=== PATIENT | male | born 1990 | race Caucasian/White ===

== ENCOUNTER 2017-12-11 11:15 | Emergency (ER) ==
[2017-12-11 11:29] VITALS: BP 124/85; TEMP 98.4; BMI 30.2
--- NOTE | 2017-12-11 11:53 | DI ---
Examination: Two views of the chest. HISTORY: Cough. COMPARISON: None. FINDINGS: The cardiomediastinal silhouette appears normal in overall size and configuration. The tra ngs are clear without focal pulmonary infiltrate. There is no significant pleural fluid. Osseous st ructures without significant abnormalities. IMPRESSION: No acute cardiopulmonary abnormality.
--- NOTE | 2017-12-11 12:38 | ED.PDOC ---
General ED Provider: Dr. EMILY CELIS Chief Complaint: Respiratory Complaint Stated Complaint: flu like symptoms Time Seen by Physician: 11:18 (flu like symp) Information Source: Patient Exam Limitations: No limitations Primary Care Provider: STEPHANY RODRIGUEZ Nursing and Triage Documentation Reviewed and Agree: Yes Reviewed sepsis parameters & appropriate labs ordered?: Yes (seen with nursing staff Brandon AT ALL TIMES) System Inflammatory Response Syndrome: Not Applicable Sepsis Protocol: For patient's 13 years and over: Temp is 96.8 and below OR 101 and greater Pulse >90 BPM Resp >20/minute Acutely Altered Mental Status Are patient's symptoms suggestive of a new infection, such as: -Pneumonia -Skin, Soft Tissue -Endocarditis -UTI -Bone, Joint Infection -Implantable Device -Acute Abdominal Infection -Wound Infection -Meningitis -Blood Stream Catheter Infection -Unknown System Inflammatory Response Syndrome: Not Applicable EENT Complaint Exam - Throat Complaint/Exam Onset/Duration: 4 DAYS Symptoms Are: Still present Timimg: Intermittent Initial Severity: Moderate Current Severity: Mild Aggravating: Reports: None Associated Signs and Symptoms: Reports: Chills, Cough, Nasal congestion Uvula Midline: Yes Flor-tonsillar Fluctuence: No Scarlatinaform Rash Present: No Stridor Present: No Sinus Tenderness Present: No Tonsillar Hypertrophy Present: No Tonsillar Exudate Present: No Flor-tonsillar Swelling Present: No Adenopathy Present: No Splenomegaly Present: No Differential Diagnoses: Pharyngitis, URI Review of Systems - Review Of Systems Constitutional: Reports: Chills, Malaise, Loss of appetite Eyes: Reports: No symptoms Ears, Nose, Mouth, Throat: Reports: Throat pain Respiratory: Reports: No symptoms Cardiac: Reports: No symptoms GI: Reports: No symptoms : Reports: No symptoms Musculoskeletal: Reports: No symptoms Skin: Reports: No symptoms Neurological: Reports: No symptoms Endocrine: Reports: No symptoms Hematologic/Lymphatic: Reports: No symptoms All Other Systems: Reviewed and Negative Past Medical History - Past Medical History Previously Healthy: Yes Endocrine: Reports: None Cardiovascular: Reports: None Respiratory: Reports: None Hematological: Reports: None Gastrointestinal: Reports: None Genitourinary: Reports: None Neuro/Psych: Reports: None Musculoskeletal: Reports: None Cancer: Reports: None - Surgical History General Surgical History: Reports: None - Family History Family History: Reports: None - Social History Smoking Status: Never smoker Hx Substance Use: No Alcohol Screening: None Physical Exam - Physical Exam Appearance: Well-appearing, No pain distress, Well-nourished Eyes: KEVIN, EOMI, Conjunctiva clear ENT: Erythema Respiratory: Airway patent, Breath sounds clear, Breath sounds equal, Respirations nonlabored Cardiovascular: RRR, Pulses normal, No rub, No murmur GI/: Soft, Nontender, No masses, Bowel sounds normal, No Organomegaly Musculoskeletal: Normal strength, ROM intact, No edema, No calf tenderness Skin: Warm, Dry, Normal color Neurological: Sensation intact, Motor intact, Reflexes intact, Cranial nerves intact, Alert, Oriented Psychiatric: Affect appropriate, Mood appropriate Critical Care Note - Critical Care Note Total Time (mins): 0 Course - Course Orders, Labs, Meds: Lab Review 12/11/17 12:00 Influenza A (Rapid) Negative by naat Influenza B (Rapid) Negative by naat Orders Category Date Time Status FLU A/B MOLECULAR Stat LAB 12/11/17 12:00 Completed MOLECULAR GROUP A STREP Stat LAB 12/11/17 11:40 Completed CHEST, 2 VIEWS PA & LAT Stat RADS 12/11/17 11:25 Completed Vital Signs: Temp Pulse Resp BP Pulse Ox 12/11/17 11:16 98.4 F 105 H 20 124/85 91 L Departure - Departure Time of Disposition: 12:37 Disposition: HOME SELF-CARE Discharge Problem: Viral syndrome, Bronchitis Instructions: Acute Bronchitis (ED) Condition: Good Pt referred to PMD for follow-up: Yes (VIRAL SYNDROME) IPMP verified?: No Additional Instructions: Please call your Family Physician as soon as possible to schedule a follow-up appointment. Prescriptions: Amoxicillin 500 mg PO Q8HR #21 tablet Allergies/Adverse Reactions: Allergies No Known Allergies Allergy (Unverified 12/11/17 11:30) Home Medications: Ambulatory Orders Amoxicillin 500 mg PO Q8HR #21 tablet 12/11/17 Lurasidone HCl [Latuda] 80 mg PO DAILY 12/11/17 Olanzapine [Zyprexa] 30 mg PO BEDTIME 12/11/17
== END 2017-12-11 13:10 | disposition home or self-care (01) ==
LOC: ED 11:15
DX: J20.9 Acute bronchitis, unspecified (principal); B34.9 Viral infection, unspecified
CPT/HCPCS: 87502; 87651; 99282

== ENCOUNTER 2019-01-28 09:02 | Outpatient (CLI) | payer OTHER | END 2019-01-28 09:03 | disposition home or self-care (01) | LOC: LAB 09:02 | PROVIDERS: ATTEND Internal Medicine | DX: Z79.899 Other long term (current) drug therapy (principal) | CPT/HCPCS: 36415; 80053; 80061; 84146; 85025 ==